=== PATIENT | female | born 2000 | race Two or more races ===

== ENCOUNTER 2018-09-07 09:21 | Outpatient (CLI) | payer OTHER ==
[~2018-09-07 09:21] MED LIST: FLONASE16 GM NS; GILTUSS TR TAB1 EACH PO; OSEL75CA; ZOVIRAX15 GM TP; ZYRTEC10 MG PO; [UNRECOGNIZED DRUG - OTHER] OTIC; [UNRECOGNIZED DRUG - REMARK]
== END 2018-09-07 15:00 | disposition home or self-care (01) ==
LOC: LAB 09:21
DX: J11.1 Influenza due to unidentified influenza virus with other respiratory manifestations (principal); R50.9 Fever, unspecified; R05 Cough

== ENCOUNTER 2024-05-09 17:44 | Emergency (ER) | payer OTHER ==
[~2024-05-09] VITALS: Ht 172.7 cm; Wt 61.2 kg
[2024-05-09 18:16] VITALS: BP 124/82; O2SAT 98
[2024-05-09] MEDS ORDERED: AMOX-CLAV 875-1 EACH PO (22:22)
== END 2024-05-09 22:26 | disposition home or self-care (01) ==
LOC: ER 17:46
DX: J02.0 Streptococcal pharyngitis (principal)